=== PATIENT | female | born 1985 | race Caucasian/White ===

== ENCOUNTER 2019-03-25 13:39 | Emergency (ER) | payer OTHER ==
[2019-03-25 14:09] VITALS: BP 101/71
--- NOTE | 2019-03-25 14:45 | UC ---
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 and sneezed Acute onset of pain initially pain went down right leg leg pain lasted minutes no bowel or bladder dysfunction took 200mg ibuprofen with relief - History of Current Complaint Chief Complaint: UCBackPain Stated Complaint: BACK PAIN Time Seen by Provider: 03/25/19 14:31 Hx Obtained From: Patient Hx Last Menstrual Period: 03/10/19 Onset/Duration: Sudden Onset, Lasting Hours Timing: Constant Severity Initially: Severe Severity Currently: Moderate Pain Intensity: 5 Pain Scale Used: 0-10 Numeric Back Pain: Is Diffuse Character: Throbbing, Spasmodic Aggravating Factor(s): Movement, Lifting, Bending Alleviating Factor(s): Rest, OTC Meds Associated Signs And Symptoms: Positive: Negative Full Body (No Head): 1 - pain here - Allergies/Home Medications Allergies/Adverse Reactions: Allergies Allergy/AdvReac Type Severity Reaction Status Date / Time latex Allergy Rash Verified 03/25/19 14:09 Home Medications: Home Medications Ibuprofen TAB* [Advil TAB*] 200 mg PO Q6H PRN 03/25/19 [History Confirmed ] Vit No.129/Iron/Folic [ One Daily Tablet] 1 tab PO DAILY [History Confirmed 03/25/19] PMH/Surg Hx/FS Hx/Imm Hx Previously Healthy: Yes - Surgical History Surgical History: Yes Surgery Procedure, Year, and Place: appendectomy - Family History Known Family History: Positive: Hypertension - Social History Alcohol Use: Rare Substance Use Type: None Smoking Status (MU): Never Smoked Tobacco Review of Systems All Other Systems Reviewed And Are Negative: Yes Constitutional: Positive: Negative Skin: Positive: Negative Eyes: Positive: Negative ENT: Positive: Negative Respiratory: Positive: Negative Cardiovascular: Positive: Negative Gastrointestinal: Positive: Negative Genitourinary: Positive: Negative Motor: Positive: Negative Neurovascular: Positive: Negative Musculoskeletal: Positive: Decreased ROM, Myalgia, Other: - decreased ROM twisting and flexion/extension of back Neurological: Positive: Negative Psychological: Positive: Negative Physical Exam Triage Information Reviewed: Yes Appearance: Well-Appearing, No Pain Distress, Well-Nourished Vital Signs: Initial Vital Signs Temp 98.6 F 03/25/19 14:03 Pulse 71 03/25/19 14:03 Resp 16 03/25/19 14:03 BP 101/71 03/25/19 14:03 Pulse Ox 99 03/25/19 14:03 Vital Signs Reviewed: Yes Eyes: Positive: Conjunctiva Clear ENT: Positive: Hearing grossly normal. Negative: Nasal congestion, Nasal drainage, Trismus, Muffled voice, Hoarse voice, Uvula midline Neck: Positive: Supple, Nontender, No Lymphadenopathy Respiratory: Positive: Lungs clear, Normal breath sounds, No respiratory distress, No accessory muscle use Cardiovascular: Positive: RRR, No Murmur Musculoskeletal: Positive: ROM Intact, No Edema Neurological: Positive: Alert, Other: - DTRs equal bilat, (-) SLR, sensory intact, strength 5/5, slow gait Psychological Exam: Normal Skin Exam: Normal Back Pain Course/Dx - Differential Dx/Diagnosis Provider Diagnosis: Acute lumbar myofascial strain Discharge - Sign-Out/Discharge Documenting (check all that apply): Patient Departure All imaging exams completed and their final reports reviewed: No Studies - Discharge Plan Condition: Stable Disposition: HOME Prescriptions: Cyclobenzaprine (NF) [Cyclobenzaprine 5 MG (NF)] 5 mg PO TID PRN #21 tab PRN Reason: Spasms - Back Patient Education Materials: Low Back Strain (ED), Lower Back Exercises (ED) Referrals: Cami Kyle MD [Primary Care Provider] - 5 Days (if not better) Additional Instructions: ibuprofen 200mg you can take upto 3 pills 4x day as needed for pain (take with food) - Billing Disposition and Condition Condition: STABLE Disposition: Home
== END 2019-03-25 14:53 | disposition home or self-care (01) ==
LOC: UCEAST 13:39
DX: S39.012A Strain of muscle, fascia and tendon of lower back, initial encounter (principal); X50.0XXA Overexertion from strenuous movement or load, initial encounter; Y93.89 Activity, other specified; Y92.9 Unspecified place or not applicable
CPT/HCPCS: 99212; G0463

== ENCOUNTER 2019-03-29 15:35 | Emergency (ER) | payer OTHER ==
--- NOTE | 2019-03-29 15:40 | UC ---
Back Pain HPI - HPI Summary HPI Summary: Patient is 33 year old female, who present today to the urgent care with low back pain that started on 03/25/19. Mechanism: Went over with her backpack and sneezed. She was seen here 2 hours after the onset of pain and was diagnosed with lumbar strain and advised Flexeril that she has been taking twice a day. She feels that her symptoms are getting worse. She did not take ibuprofen for past 2 days. Pain is localized in the lumbar area . Pain gets worse with every movement . Denies any radicular symptoms, numbness , tingling , incontinence, saddle anesthesia , motor or sensory disturbance. Taking ibuprofen. - History of Current Complaint Stated Complaint: LOWER BACK ACHE Time Seen by Provider: 03/29/19 15:37 Hx Obtained From: Patient Hx Last Menstrual Period: 03/10/19 ?: No - Allergies/Home Medications Allergies/Adverse Reactions: Allergies Allergy/AdvReac Type Severity Reaction Status Date / Time latex Allergy Rash Verified 03/29/19 15:46 PMH/Surg Hx/FS Hx/Imm Hx - Additional Past Medical History Additional PMH: Past Medical History : None Past Surgical History: Appendectomy Family History : Noncontributory Social History : Rare alcohol, non smoker, no drug use.She is a professor at [employer] . Previously Healthy: Yes - Surgical History Surgical History: Yes Surgery Procedure, Year, and Place: appendectomy - Family History Known Family History: Positive: Hypertension - Social History Alcohol Use: Rare Substance Use Type: None Smoking Status (MU): Never Smoked Tobacco Review of Systems All Other Systems Reviewed And Are Negative: Yes Constitutional: Positive: Negative Skin: Positive: Negative Eyes: Positive: Negative ENT: Positive: Negative Respiratory: Positive: Negative Cardiovascular: Positive: Negative Gastrointestinal: Positive: Negative Genitourinary: Positive: Negative Motor: Positive: Negative Neurovascular: Positive: Negative Musculoskeletal: Positive: Arthralgia - low back, Decreased ROM - limited and painful Neurological: Positive: Negative Psychological: Positive: Negative Is Patient Immunocompromised?: No Physical Exam - Summary Physical Exam Summary: Physical Exam: Const: Appears well. No signs of apparent distress present. Alert and oriented x 3. Musculo: Walks with a normal gait. Head/Face: Atraumatic, normocephalic on inspection. Eyes: EOMI and PERRLA in both eyes. Conjunctivae clear. ENT: Hearing normal Respiratory: Respirations are unlabored. CVS: Regular rate and Rhythm, S1S2 normal , no murmurs identified. Abdomen : Soft non tender Hip/ Spine: Const: alert and oriented X 3. No signs of apparent distress present. Musculo: Walks with a normal gait. Spine: No loss of the normal lumbar lordosis or step-off. there is midline and bilateral paraspinal tenderness spine noted from L3L4 to L5S1. There is no tenderness of the costovertebral angle bilaterally. Stability: No obvious instability. Strength: 5/5 ROM: limited and painful ROM in all planes Special Tests: Straight leg raise is negative bilaterally. Hip: Insp/Palp: Normal to inspection and palpation. Strength: 5/5 bilaterally. Normal muscle tone bilaterally. ROM: Bilateral hips: full ROM - internal and external rotation, Neg CYRUS test on RIGHT to 90 deg, Neg CYRUS test on LEFT to 90 deg, Neg FADIR test on RIGHT to 10 deg, Neg FADIR test on LEFT to 10 deg. Skin: No scars, rashes, lesions or ecchymosis. Neuro: Sensation intact to light touch. Motor and sensory intact. Reflexes: Left DTR's are intact. Right DTR's are intact. Toes downgoing. Coordination normal. Distal pulses intact. Triage Information Reviewed: Yes Vital Signs Reviewed: Yes Back Pain Course/Dx - Course Course Of Treatment: During the visit today, we discussed the findings consistent with lumbar strain. Start medrol dose janay and naproxen as needed. I will prescribe the medication to the pharmacy . She will follow up with PMD in 1 week and if no better consider Xrays. Patient expressed understanding . - Differential Dx/Diagnosis Provider Diagnosis: Lumbar strain Discharge - Sign-Out/Discharge Documenting (check all that apply): Patient Departure All imaging exams completed and their final reports reviewed: No Studies - Discharge Plan Condition: Stable Disposition: HOME Prescriptions: methylPREDNISolone [Medrol Dosepak 4 MG*] 4 mg PO .SEE JANAY INSTRUCTION #1 janay Naproxen [Naproxen 500 mg tab] 500 mg PO BID PRN 15 Days #30 tablet.dr BARBER Reason: Pain Patient Education Materials: Low Back Strain (ED), Core Strengthening Exercises (GEN), Lower Back Exercises (ED) Referrals: Cami Kyle MD [Primary Care Provider] - 1 Week Additional Instructions: Please start taking the medication as prescribed to the pharmacy . Start physical therapy Take naproxen only after meals. Maintain hydration Gentle daily activities as tolerated. Take flexeril at night only Follow up with your primary care doctor in 1 week. Return to Urgent care / ER if symptoms get worse. - Billing Disposition and Condition Condition: STABLE Disposition: Home
[2019-03-29 15:46] VITALS: BP 103/59
== END 2019-03-29 16:41 | disposition home or self-care (01) ==
LOC: UCEAST 15:35
DX: S39.012A Strain of muscle, fascia and tendon of lower back, initial encounter (principal); X58.XXXA Exposure to other specified factors, initial encounter; Y92.9 Unspecified place or not applicable; Z91.040 Latex allergy status
CPT/HCPCS: 99212; G0463

== ENCOUNTER 2020-06-18 04:00 | Inpatient (IN) ==
[2020-06-18] MEDS ORDERED: Lactated Ringers 1000 ml BAG 1,000 ML IV ONE (06:49)
[2020-06-18] MEDS ORDERED: Lactated Ringers 1000 ml BAG 1,000 ML IV SCH ×2 (07:00→22:00)
[2020-06-18 08:53] LABS: Urine Benzodiazepine Screen None Detected (None Detect); Urine Cannabinoids Screen None Detected (None Detect); Urine Opiates Screen None Detected (None Detect)
[2020-06-18 11:24] LABS: ABS Eosinophils 0.1 10^3/ul (0-0.6); ABS Lymphocytes 1.6 10^3/ul (1.0-4.8); ABS Monocytes 0.6 10^3/ul (0-0.8); ABS Neutrophils 5.6 10^3/ul (1.5-7.7); Eosinophil % 0.6 %; Hematocrit 36 % (35-47); Hemoglobin 12.2 g/dL (12.0-16.0); Lymphocyte % 20.4 %; Mean Corpuscular HGB Conc 34 g/dL (31-36); Mean Corpuscular Hemoglobin 29 pg (27-31); Mean Corpuscular Volume 84 fL (80-97); Mean Platelet Volume 7.9 fL (7.4-10.4); Nucleated Red Blood Cells % 0.1; Platelet Count 244 10^3/uL (150-450); Red Blood Count 4.27 10^6 /uL (3.70-4.87); Red Cell Distribution Width 14 % (10-15); White Blood Count 7.8 10^3/uL (3.5-10.8)
[2020-06-18] MEDS ORDERED: OBEPIDURAL 250 ML EPIDURAL ONE (16:36)
[2020-06-18] MEDS: Phenylephrine 40 mcg/mL 10mL (400mcg) SYRINGE IV PUSH PRN ×2 (18:03→18:10)
[2020-06-18] MEDS ORDERED: Sodium Citrate/Citric Acid LIQ 15 ML UDC PO PRN (18:26)
[2020-06-18] MEDS ORDERED: OBEPIDURAL 250 ML EPIDURAL SCH (19:00)
[2020-06-18] MEDS ORDERED: ceFOXitin 2 GM IVPREMIX 2 GM/50 ML BAG ONE (19:06)
[2020-06-18] MEDS ORDERED: Lidocaine 2% w/ EPI 1:200,000 MPF 20 ML SDV VIAL ONE ×2 (19:32→20:03)
[2020-06-18] MEDS ORDERED: Morphine PF AMP (0.5MG/ML) 5 MG/10 ML AMP ONE (20:06)
[2020-06-18] MEDS ORDERED: Naloxone 0.4 mg VIAL 0.4 mg/ml 1 ml VIAL IV PRN (20:25)
[2020-06-18] MEDS ORDERED: Ondansetron 4 mg VIAL 2 MG/ML 2 ml VIAL IV PRN (20:25)
[2020-06-18] MEDS ORDERED: Glycerin ADULT 2.4 gm SUPP PR PRN (21:09)
[2020-06-18] MEDS ORDERED: Witch Hazel PAD JAR TOPICAL PRN (21:09)
[2020-06-18] MEDS ORDERED: Dibucaine 1% OINT 28.35 GM TUBE PR PRN (21:09)
[2020-06-18] MEDS ORDERED: Oxytocin in LR 20 UNITS/1,000 ML BAG IVPB SCH (22:00)
[2020-06-19 08:05] LABS: ABS Basophils 0.1 10^3/ul (0-0.2); ABS Lymphocytes 2.2 10^3/ul (1.0-4.8); ABS Monocytes 0.4 10^3/ul (0-0.8); ABS Neutrophils 8.2 10^3/ul (1.5-7.7); Eosinophil % 0.4 %; Hematocrit 34 % (35-47); Hemoglobin 11.5 g/dL (12.0-16.0); Lymphocyte % 20.1 %; Mean Corpuscular HGB Conc 34 g/dL (31-36); Mean Corpuscular Hemoglobin 29 pg (27-31); Mean Corpuscular Volume 85 fL (80-97); Mean Platelet Volume 7.8 fL (7.4-10.4); Nucleated Red Blood Cells % 0.1; Platelet Count 209 10^3/uL (150-450); Red Blood Count 3.94 10^6 /uL (3.70-4.87); Red Cell Distribution Width 14 % (10-15); White Blood Count 10.9 10^3/uL (3.5-10.8)
[2020-06-21 08:51] VITALS: BP 114/67
== END 2020-06-21 12:40 | disposition home or self-care (01) | DRG 788 ==
LOC: MCHOBOUT 04:00 → MCHOB 05:27
PROVIDERS: ADMIT Obstetrics & Gynecology; ATTEND Obstetrics & Gynecology

== ENCOUNTER 2024-08-17 05:43 | Inpatient (IN) ==
[2024-08-17] MEDS: Lactated Ringers 1000 ml BAG 1,000 ML IV ONE (06:09)
[2024-08-17 06:23] LABS: ABS Eosinophils 0.1 10^3/uL (0.0-0.5); ABS Lymphocytes 2.1 10^3/uL (1.0-4.8); ABS Monocytes 0.4 10^3/uL (0.0-0.9); ABS Neutrophils 3.6 10^3/uL (1.5-7.6); ABS Nucleated RBC 0.01 10^3/ul; Hematocrit 36.1 % (35-45); Hemoglobin 11.9 g/dL (11.5-14.3); Lymphocyte % 33.9 %; Mean Corpuscular Hemoglobin 27.8 pg (27-33); Mean Corpuscular Volume 84.1 fL (80-97); Mean Platelet Volume 7.5 fL (7.5-11.2); Nucleated Red Blood Cells % 0.1 %/100WBC (0.0-0.8); Platelet Count 238 10^3/uL (150-450); Red Blood Count 4.29 10^6/uL (3.63-4.92); Red Cell Distribution Width 13.9 % (12-17); White Blood Count 6.2 10^3/uL (3.8-11.8)
[2024-08-17] MEDS: Buffered Lidocaine 1% SYRIN 1 ml INTRADERM ONE (07:01)
[2024-08-17] MEDS ORDERED: Oxytocin 10 UNITS/ML 1 ML VIAL ONE (07:08)
[2024-08-17] MEDS ORDERED: Morphine PF AMP (0.5MG/ML) 5 MG/10 ML AMP ONE (07:09)
[2024-08-17] MEDS ORDERED: Phenylephrine IV 10 MG/ML 1 ml VIAL ONE (07:09)
[2024-08-17] MEDS ORDERED: Metoclopramide 5 MG/ML VIAL (10 mg) ONE (07:09)
[2024-08-17] MEDS ORDERED: fentaNYL 100 mcg/2 ml 50 MCG/ML VIAL ONE (07:09)
[2024-08-17] MEDS: ceFOXitin 2 GM IVPREMIX 2 GM/50 ML BAG IVPB ONE (07:47)
[2024-08-17] MEDS: Sodium Citrate/Citric Acid LIQ 15 ML UDC PO ONE (07:47)
[2024-08-17] MEDS ORDERED: Dexamethasone IV 4 MG/ML VIAL 1 ml VIAL ONE (08:17)
[2024-08-17] MEDS ORDERED: Acetaminophen IV 1 GM/100ML 1,000 MG/100 ML BAG IV ONE (08:21)
[2024-08-17] MEDS ORDERED: Acetaminophen IV 1 GM/100ML 1,000 MG/100 ML BAG IV PRN (08:29)
[2024-08-17] MEDS ORDERED: Metoclopramide 5 MG/ML VIAL (10 mg) IV PRN (08:29)
[2024-08-17] MEDS ORDERED: Ondansetron 4 mg VIAL 2 MG/ML 2 ml VIAL IV PRN (08:29)
[2024-08-17] MEDS ORDERED: Naloxone 0.4 mg VIAL 0.4 mg/ml 1 ml VIAL IV PUSH PRN (08:29)
[2024-08-17] MEDS ORDERED: Phenylephrine 40 mcg/mL 10mL (400mcg) SYRINGE ONE (09:01)
[2024-08-17 09:18] LABS: Urine Benzodiazepine Screen None Detected (None Detect); Urine Cannabinoids Screen None Detected (None Detect); Urine Opiates Screen None Detected (None Detect)
[2024-08-17] MEDS ORDERED: Glycerin ADULT 2.4 gm SUPP PR PRN (09:19)
[2024-08-17] MEDS ORDERED: Dibucaine 1% OINT 28.35 GM TUBE PR PRN (09:19)
[2024-08-17] MEDS ORDERED: Witch Hazel PAD JAR TOPICAL PRN (09:19)
[2024-08-17 09:37] LABS: Urine Appearance Clear; Urine Bilirubin Negative (Negative); Urine Blood Trace (Negative); Urine Color Light-Yellow; Urine Glucose Negative (Negative); Urine Ketones Negative (Negative); Urine Nitrite Negative (Negative); Urine Protein Negative (Negative); Urine Specific Gravity 1.011 (1.002-1.030); Urine Urobilinogen Negative (Negative); Urine pH 6.5 (5.0-8.0)
[2024-08-17] MEDS ORDERED: Lactated Ringers 1000 ml BAG 1,000 ML IV SCH (10:00)
[2024-08-17] MEDS: Oxytocin in LR 20,000 MILLI.UNIT/1,000 ML BAG IV SCH (11:53)
[2024-08-18] MEDS: Lactated Ringers 1000 ml BAG 1,000 ML IV SCH (00:58)
[2024-08-18 07:22] LABS: ABS Basophils 0.1 10^3/uL (0.0-0.1); ABS Eosinophils 0.1 10^3/uL (0.0-0.5); ABS Lymphocytes 2.8 10^3/uL (1.0-4.8); ABS Monocytes 0.5 10^3/uL (0.0-0.9); ABS Neutrophils 6.8 10^3/uL (1.5-7.6); Eosinophil % 0.8 %; Hematocrit 34.7 % (35-45); Hemoglobin 11.6 g/dL (11.5-14.3); Lymphocyte % 27.5 %; Mean Corpuscular Hemoglobin 28.2 pg (27-33); Mean Corpuscular Hgb Conc 33.4 g/dL (31-36); Mean Corpuscular Volume 84.4 fL (80-97); Mean Platelet Volume 7.7 fL (7.5-11.2); Platelet Count 213 10^3/uL (150-450); Red Blood Count 4.11 10^6/uL (3.63-4.92); Red Cell Distribution Width 13.4 % (12-17); White Blood Count 10.3 10^3/uL (3.8-11.8)
[2024-08-19 08:15] VITALS: BP 112/61
== END 2024-08-19 15:15 | disposition home or self-care (01) | DRG 788 ==
LOC: MCHOB 05:43
PROVIDERS: ADMIT Obstetrics & Gynecology; ATTEND Obstetrics & Gynecology